=== PATIENT | female | born 1965 | race Caucasian/White ===

== ENCOUNTER → 2017-08-19 | Outpatient (CLI) | payer MEDICAID, OTHER ==
--- NOTE | 2017-08-19 17:46 | US ---
THYROID ULTRASOUND CLINICAL INFORMATION: Thyroid nodule, previously removed right lobe of the thyroid gland TECHNIQUE: Sonogram of the remaining thyroid tissue was performed. COMPARISON: None FINDINGS: Thyroid size: Right lobe is surgically absent. Left lobe measures 5.1 x 2.6 x 2.4 cm. Texture: Coarse inhomogeneous Estimated total number of nodules >/=1 cm: 2 In the thyroid isthmus, a solid nodule is seen with some tiny cystic components and punctate foci which could be colloid or microcalcifications. This measures 1.5 x 0.8 x 0.8 cm. Doppler images show mild vascular flow within the lesion is slightly greater than adjacent thyroid tissue. Fine-needle aspiration biopsy is recommended if not previously performed. In the left lobe of the gland, hypoechoic sonographically solid mass is seen which measures 3.5 x 1.9 x 1.6 cm. No internal calcifications or cystic changes. Color Doppler images show mild color flow within the lesion similar to the adjacent thyroid parenchyma. Fine-needle aspiration biopsy is recommended if not previously performed. IMPRESSION: Significant thyroid nodules in the left thyroid lobe and isthmus. Further evaluation is recommended as discussed above. Electronically signed by: El Otoole MD 08/19/2017 5:45 PM CDT
--- NOTE | 2017-08-23 09:37 | MAM ---
EXAM DESCRIPTION: 3D Screening BILATERAL : Digital Mammography. CLINICAL HISTORY: 52 years Female SCREENING . Mother with breast and ovarian cancer before age 50. Remote family history of breast and ovarian cancer before age 50.. COMPARISON: Baseline study at this facility. No prior reports available. TECHNIQUE: Bilateral CC and MLO projection full-field images, 3-D tomosynthesis digital mammographic technique. Also bilateral synthesized CC/ MLO full-field images. CAD not utilized. FINDINGS: The breast parenchymal density pattern is: Scattered areas of minimal fibroglandular density. No skin thickening or nipple retraction VAD injection port obscuring the region of the right axilla and pectoral muscle. No focal, stellate mass or density, focal asymmetry , and no suspicious microcalcifications bilaterally. IMPRESSION: BI-RADS CATEGORY: 2 - BENIGN FINDINGS. FOLLOW UP: Routine digital bilateral screening, one year interval from August 2017. Written communication explaining the IMPRESSION and follow-up, will be mailed to the patient and referring health care provider. According to the [employer], yearly mammograms are recommended starting at age 40 and continuing as long as a woman is in good health. Any breast change noted on a breast self-exam should be reported promptly to the patient's healthcare provider. Breast MRI is recommended for women with an approximately 20-25% or greater lifetime risk of breast cancer, including women with a strong family history of breast or ovarian cancer and women who have been treated for Hodgkin's disease. A negative mammographic report should not delay tissue diagnosis in patients with significant clinical history or physical findings. Extremely dense breast tissue limits the sensitivity of digital mammography. Electronically signed by: Roberto Carlos Byrne MD 08/23/2017 9:35 AM CDT
== END ==
LOC: US 13:33
PROVIDERS: ATTEND General Practice
DX: Z12.31 Encounter for screening mammogram for malignant neoplasm of breast (principal); R94.6 Abnormal results of thyroid function studies; E04.1 Nontoxic single thyroid nodule